=== PATIENT | male | born 1940 | race Hispanic/Latino ===

== ENCOUNTER 2019-02-09 10:53 | Outpatient (CLI) | payer MEDICARE ==
[2019-02-09 11:45] LABS: Hemoglobin 11.3 gm/dl (11.8-15.2); Mean Corpuscular HGB Conc 33 % (32-34); Mean Corpuscular Volume 96 fl (84-94); Platelet Count 269 K/mm3 (140-440); Red Blood Count 3.55 M/mm3 (3.65-5.03); Red Cell Distribution Width 14.4 % (13.2-15.2)
[2019-02-09 12:02] LABS: Alanine Aminotransferase 39 units/L (7-56); Albumin 3.2 g/dL (3.9-5); BUN/Creatinine Ratio 22; Blood Urea Nitrogen 11 mg/dL (9-20); Calcium 8.4 mg/dL (8.4-10.2); Hemolysis Index 5
[2019-02-09 12:10] LABS: Erythrocyte Sedimentation Rate 36 mm/Hr (0-20)
== END 2019-02-09 10:54 | disposition home or self-care (01) ==
LOC: LAB 10:53
PROVIDERS: ATTEND Specialist
DX: M31.6 Other giant cell arteritis (principal); Z91.018 Allergy to other foods
CPT/HCPCS: 36415; 80053; 85027; 85652